=== PATIENT | female | born 1990 | race Caucasian/White ===

== ENCOUNTER 2017-03-18 05:58 | Outpatient (CLI) | payer OTHER ==
[~2017-03-18] VITALS: Ht 170.2 cm; Wt 71.2 kg
[~2017-03-18 05:58] MED LIST: NO HOME MEDS
[2017-03-18 06:17] VITALS: BP 108/69
[2017-03-18] MEDS ORDERED: PRENATAL TABLE1 EAC3 PO (06:22)
[2017-03-18] MEDS ORDERED: ASPIRIN81 M2 PO (06:23)
[2017-03-18] MEDS ORDERED: FLAGYL250 MG PO (06:24)
[2017-03-18 07:52] LABS: ADD MIUA? YES; BILIRUBIN NEGATIVE; BLOOD NEGATIVE; COLOR YELLOW ((YELLOW)); GLUCOSE (STRIP) NEGATIVE; KETONES NEGATIVE; LEUKOCYTES SMALL; NITRITE NEGATIVE; PROTEIN (STRIP) NEGATIVE; SPECIFIC GRAVITY 1.016 (1.000-1.030); UROBILINOGEN 0.2 MG/DL (0.2-1.0)
[2017-03-18 08:05] LABS: BACTERIA RARE /HPF; EPITHELIAL CELLS RARE /HPF; MUCUS NONE SEEN /LPF; RED BLOOD CELLS 0-5 /HPF (0-5); WHITE BLOOD CELLS 0-5 /HPF (0-5)
[2017-03-18 09:18] VITALS: BP 106/61
[2017-03-18 15:08] LABS: AMPHETAMINES QUANT VALUE 0 NG/ML; BARBITUATES QUANT VALUE 0 NG/ML; BENZODIAZEPINES QUANT VALUE 0 NG/ML; BENZODIAZEPINES, URINE SCREEN Negative (200 ng/mL); MARIJUANA QUANT VALUE 0 NG/ML; OPIATES QUANTITATIVE VALUE 0 NG/ML; PHENCYCLIDINE QUANT VALUE 0 NG/ML
== END 2017-03-18 14:03 | disposition home or self-care (01) ==
LOC: LDRP-OP 05:58 → 2WEST 05:59
PROVIDERS: Advanced Practice Midwife
DX: O60.03 Preterm labor without delivery, third trimester (principal); O23.593 Infection of other part of genital tract in pregnancy, third trimester; N76.0 Acute vaginitis; O99.333 Smoking (tobacco) complicating pregnancy, third trimester; O34.219 Maternal care for unspecified type scar from previous cesarean delivery; Z3A.30 30 weeks gestation of pregnancy
CPT/HCPCS: 59025; 80306 90; 81003; 87086; G0378; J3105; J7120

== ENCOUNTER 2017-04-04 02:25 | Outpatient (CLI) | payer OTHER ==
[~2017-04-04] VITALS: Ht 165.1 cm; Wt 74.4 kg
[~2017-04-04 02:25] MED LIST changes: +ASPIRIN81 M2 PO; +FLAGYL250 MG PO; +PRENATAL TABLE1 EAC3 PO
[2017-04-04 02:43] VITALS: BP 115/70
[2017-04-04 04:04] VITALS: BP 107/71
[2017-04-04 04:36] VITALS: BP 117/62
[2017-04-04 04:37] LABS: ADD MIUA? YES; BILIRUBIN NEGATIVE; BLOOD SMALL; COLOR COLORLESS ((YELLOW)); GLUCOSE (STRIP) NEGATIVE; KETONES NEGATIVE; LEUKOCYTES NEGATIVE; NITRITE NEGATIVE; PROTEIN (STRIP) NEGATIVE; SPECIFIC GRAVITY 1.002 (1.000-1.030); UROBILINOGEN 0.2 MG/DL (0.2-1.0)
[2017-04-04 04:47] LABS: BACTERIA RARE /HPF; EPITHELIAL CELLS RARE /HPF; MUCUS NONE SEEN /LPF; RED BLOOD CELLS 0-5 /HPF (0-5); UCUL ADDED? NO; WHITE BLOOD CELLS 0-5 /HPF (0-5)
[2017-04-04 04:51] LABS: AMPHETAMINE NEGATIVE (500 ng/mL); BARBITURATES NEGATIVE (200 ng/mL); BENZODIAZEPINES NEGATIVE (150 ng/mL); COCAINE NEGATIVE (150 ng/mL); INTERNAL CONTROLS VALID? YES; METHADONE NEGATIVE (200 ng/mL); METHAMPHETAMINE NEGATIVE (500 ng/mL); OPIATES (MORPHINE) NEGATIVE (100 ng/mL); OXYCODONE NEGATIVE (100 ng/mL); PHENCYCLIDINE NEGATIVE (25 ng/mL); PROPOXYPHENE NEGATIVE (300 ng/mL); THC CANNABINOIDS NEGATIVE (50 ng/mL); TRICYCLIC ANTIDEPRESSANTS NEGATIVE (300 ng/mL)
[2017-04-04 05:36] LABS: CANDIDA DNA PROBE NEGATIVE; GARDNERELLA DNA PROBE POSITIVE; INTERNAL CONTROL VALID? YES
[2017-04-04 06:04] VITALS: BP 117/67
[2017-04-04 10:04] VITALS: BP 119/67
[2017-04-04 13:57] LABS: CHLAMYDIA TRACHOMATIS NEGATIVE; NEISSERIA GONORRHOEAE NEGATIVE
[2017-04-04 14:23] VITALS: BP 101/59
[2017-04-04] MEDS ORDERED: NIFEDIPINE20 MG PO (16:33)
[2017-04-04] MEDS ORDERED: METRONIDAZOLE500 MG PO (16:33)
== END 2017-04-04 17:00 | disposition home or self-care (01) ==
LOC: LDRP-OP 02:25 → 2WEST 02:26 → LDRP-OP 06-23 14:09
PROVIDERS: Advanced Practice Midwife; Obstetrics & Gynecology
DX: O60.03 Preterm labor without delivery, third trimester (principal); Z3A.33 33 weeks gestation of pregnancy; O99.333 Smoking (tobacco) complicating pregnancy, third trimester; F17.210 Nicotine dependence, cigarettes, uncomplicated
CPT/HCPCS: 59025; 81003; 87081; 87086; 87480; 87491; 87510; 87591; 87653; 87660; G0378; J0702; J3105; J7120

== ENCOUNTER 2017-04-27 21:27 | Outpatient (CLI) | payer OTHER ==
[~2017-04-27] VITALS: Ht 160 cm; Wt 74.8 kg
[~2017-04-27 21:27] MED LIST changes: +METRONIDAZOLE500 MG PO; +NIFEDIPINE20 MG PO
[2017-04-27 21:50] VITALS: BP 118/73
[2017-04-27 23:47] VITALS: BP 107/70
[2017-04-28 00:54] VITALS: BP 130/80
== END 2017-04-28 02:10 | disposition home or self-care (01) ==
LOC: LDRP-OP 21:27 → 2WEST 21:28 → LDRP-OP 06-22 17:10
DX: O47.00 False labor before 37 completed weeks of gestation, unspecified trimester (principal); Z3A.00 Weeks of gestation of pregnancy not specified
CPT/HCPCS: 59025; 87081; 87653; G0378; Q0177

== ENCOUNTER 2017-05-15 17:42 | Inpatient (IN) | payer OTHER ==
[~2017-05-15] VITALS: Ht 167.6 cm; Wt 77.3 kg
[2017-05-15] VITALS (12 sets, daily range): BP systolic 108–146; BP diastolic 60–93
[2017-05-15 19:00] LABS: EOSINOPHIL (%) 0.7 % (0-5); EOSINOPHIL COUNT 0.1 K/uL (0-0.3); HEMATOCRIT 34.7 % (36.0-46.0); IMMATURE GRANULOCYTE (%) 0.8 % (0.0-0.7); IMMATURE GRANULOCYTE COUNT 0.1 K/uL; INSTRUMENT ABS NEUTROPHIL CT 11.5 K/uL; LYMPHOCYTE COUNT 1.6 K/uL (1.0-2.8); MCH 29.2 PG (29.0-34.0); MCV 85.9 FL (83-99); MEAN PLAT.VOLUME 10.3 uM^3 (9.5-12.4); MONOCYTE (%) 8.2 % (3-12); MONOCYTE COUNT 1.2 K/uL (0-0.8); NEUTROPHIL (%) 78.9 % (45-76); NEUTROPHIL COUNT 11.5 K/uL (1.8-6.4); PLATELET COUNT 226 K/uL (156-360); RBC DIS.WIDTH-CV 12.6 % (11.8-14.6); RBC DIS.WIDTH-SD 39.1 % (39-53); RED BLOOD COUNT 4.04 M/uL (3.80-5.20); WHITE BLOOD COUNT 14.6 K/uL (4.1-10.2)
[2017-05-15 19:42] LABS: AMPHETAMINE NEGATIVE (500 ng/mL); BARBITURATES NEGATIVE (200 ng/mL); BENZODIAZEPINES NEGATIVE (150 ng/mL); COCAINE NEGATIVE (150 ng/mL); INTERNAL CONTROLS VALID? YES; METHADONE NEGATIVE (200 ng/mL); METHAMPHETAMINE NEGATIVE (500 ng/mL); OPIATES (MORPHINE) NEGATIVE (100 ng/mL); OXYCODONE NEGATIVE (100 ng/mL); PHENCYCLIDINE NEGATIVE (25 ng/mL); PROPOXYPHENE NEGATIVE (300 ng/mL); THC CANNABINOIDS NEGATIVE (50 ng/mL); TRICYCLIC ANTIDEPRESSANTS NEGATIVE (300 ng/mL)
[2017-05-15 19:49] LABS: Estimated Average Glucose 108 mg/dL (70-123); HEMOGLOBIN A1c (GLYCOHEMOGLOB) 5.4 % HGB (Below 5.7)
[2017-05-16] VITALS (9 sets, daily range): BP systolic 99–130; BP diastolic 51–75
[2017-05-17 05:54] LABS: EOSINOPHIL (%) 1.9 % (0-5); EOSINOPHIL COUNT 0.3 K/uL (0-0.3); HEMATOCRIT 28.8 % (36.0-46.0); IMMATURE GRANULOCYTE (%) 0.8 % (0.0-0.7); IMMATURE GRANULOCYTE COUNT 0.1 K/uL; INSTRUMENT ABS NEUTROPHIL CT 9.5 K/uL; MCH 28.2 PG (29.0-34.0); MCHC 32.3 G/DL (30.0-36.0); MCV 87.3 FL (83-99); MEAN PLAT.VOLUME 10.4 uM^3 (9.5-12.4); MONOCYTE (%) 11.5 % (3-12); MONOCYTE COUNT 1.5 K/uL (0-0.8); NEUTROPHIL (%) 70.9 % (45-76); NEUTROPHIL COUNT 9.5 K/uL (1.8-6.4); PLATELET COUNT 166 K/uL (156-360); RBC DIS.WIDTH-CV 12.7 % (11.8-14.6); RBC DIS.WIDTH-SD 40.3 % (39-53); WHITE BLOOD COUNT 13.3 K/uL (4.1-10.2)
[2017-05-17 07:39] VITALS: BP 104/63
[2017-05-17 08:27] VITALS: BP 104/63
[2017-05-17 14:29] VITALS: BP 110/56
[2017-05-18 08:00] VITALS: BP 104/57
[2017-05-18] MEDS ORDERED: FERROUS GLUCON324 MG PO (11:26)
[2017-05-18] MEDS ORDERED: IBUPROFEN800 MG PO (11:26)
== END 2017-05-18 12:40 | disposition home or self-care (01) | DRG 775 ==
LOC: LDRP-OP 17:42 → 2WEST 17:43 → LDRP-OP 06-22 02:22
PROVIDERS: Advanced Practice Midwife
PROC: 3E0R3BZ Introduction of Anesthetic Agent into Spinal Canal, Percutaneous Approach (ICD-10-PCS; principal; 2017-05-15)
PROC: 10907ZC Drainage of Amniotic Fluid, Therapeutic from Products of Conception, Via Natural or Artificial Opening (ICD-10-PCS; principal; 2017-05-15)
PROC: 00HU33Z Insertion of Infusion Device into Spinal Canal, Percutaneous Approach (ICD-10-PCS; principal; 2017-05-15)
PROC: 10E0XZZ Delivery of Products of Conception, External Approach (ICD-10-PCS; 2017-05-16)
PROC: 0HQ9XZZ Repair Perineum Skin, External Approach (ICD-10-PCS; 2017-05-16)
DX: O70.0 First degree perineal laceration during delivery (principal); O99.02 Anemia complicating childbirth; D62 Acute posthemorrhagic anemia; O34.211 Maternal care for low transverse scar from previous cesarean delivery; Z3A.39 39 weeks gestation of pregnancy; Z37.0 Single live birth; O99.89 Other specified diseases and conditions complicating pregnancy, childbirth and the puerperium; M41.9 Scoliosis, unspecified; F11.21 Opioid dependence, in remission
CPT/HCPCS: 83036; 85025; C1755; G0378; J3010; J7120